=== PATIENT | male | born 1955 | race Caucasian/White ===

== ENCOUNTER 2016-12-03 21:20 | Inpatient (IN) | payer OTHER, MEDICAID ==
[~2016-12-03] VITALS: Ht 170.2 cm; Wt 68.1 kg
[~2016-12-03 21:20] MED LIST: LEVO500T16 PO; MULT1CAP33 PO
[2016-12-03 21:32] VITALS: BP 137/79; PULSE 95; RESP 16; O2SAT 94
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
[2016-12-03] MEDS ORDERED: Alum-Mag Hydrox-Simeth 30 mL Suspension PO PRN (23:25)
[2016-12-03] MEDS ORDERED: Polyethylene Glycol (PEG) 17 Gm Powder PO PRN (23:25)
[2016-12-03] MEDS ORDERED: LORazepam 2 mg Tablet PO ONE (23:35)
[2016-12-03 23:45] LABS: BASOPHILS % (AUTO) 0 % (0-3); EOSINOPHILS % (AUTO) 0.3 % (0-5); MONOCYTES % (AUTO) 13.6 % (4-12); Mean Corpuscular Hemoglobin 33.9 pg (27.0-35.0); Mean Corpuscular Volume 97.3 fL (81-100); NEUTROPHILS % (AUTO) 68.3 % (40-74); Platelet Count 56 bil/L (150-400)
[2016-12-04] VITALS (11 sets, daily range): BP systolic 112–138; BP diastolic 64–81; PULSE 78–117; RESP 18–22; O2SAT 91–98
[2016-12-04 00:01] LABS: INR 0.92 ratio
[2016-12-04] MEDS ORDERED: Ondansetron 8 mg ODT Tablet PO ONE (00:05)
[2016-12-04] MEDS ORDERED: Heparin 5,000 Unit/mL Inj SUBQ SCH (00:30)
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
[2016-12-04] MEDS: Ondansetron 2 mg/mL 2 mL Inj IVPUSH PRN ×2 (01:08→07:54)
--- NOTE | 2016-12-04 02:00 | NUR ---
admit note/med rec Pt is admitted to room 3029 from ER for L patella fracture around 00:30. Pt c/o severe left leg pain when standing and with short ambulation. Left knee is swollen and bruised. Left pedal pulse palpable. Pt tremulous and wanting to drink alcohol and smoke. CIWA score was 11 and dry heaving. 5mg Valium and Zofran given with good relief. CIWA is down to 4. Pt NPO pending Ortho consult. Pt is oriented to room and plan of care; he verbalized understanding. Unable to update pt's med rec because he couldn't remember his meds.
[2016-12-04] MEDS: 0.9% Sodium Chloride 1,000 ML IV SCH ×2 (03:37→14:06)
[2016-12-04 06:28] LABS: BASOPHILS % (AUTO) 0 % (0-3); EOSINOPHILS % (AUTO) 0.9 % (0-5); MONOCYTES % (AUTO) 12.5 % (4-12); Mean Corpuscular Hemoglobin 34.2 pg (27.0-35.0); Mean Corpuscular Volume 96.7 fL (81-100); NEUTROPHILS % (AUTO) 64.3 % (40-74); Platelet Count 46 bil/L (150-400)
[2016-12-04] MEDS ORDERED: IBUP200C PO (08:21)
[2016-12-04] MEDS ORDERED: CYAN1TAB19 PO (08:21)
[2016-12-04] MEDS ORDERED: CeFAZolin 2 Gm/50 mL D5W Duplex Bag IV SCH (08:30)
[2016-12-04] MEDS ORDERED: Famotidine Inj 20 MG in IV Premix 1 EACH IV SCH (08:30)
[2016-12-04] MEDS: Multivit-Miner-Folic Acid-Iron Tablet PO SCH (09:03)
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
--- NOTE | 2016-12-04 11:09 | PCM.PNORTH ---
Subjective Date of Service: Dec 04, 2016 Visit Information: Reason for Visit Fractured Pattelar Surgery/Surgery Date Post-Op Day # Date of Admission: Dec 03, 2016 at 23:49 Hospital Day # Subjective Patient states he is in pain but it is tolerable. He states he has not been given a brace yet but was told he should keep his leg straight and states he has been compliant with this. Postop General: No Shortness of Breath Objective Exam Objective Patient sitting up in bed. Patient is very shaky. There is not brace on his leg. There are no bandages on his knee. Area of erythema and swelling across the anterior aspect of his knee with several small non-draining lesions. Vital Signs and I/O Vital Sign - Last Date Time Temp Pulse Resp B/P Pulse Ox O2 Delivery O2 Flow Rate FiO2 12/04/16 10:20 117 12/04/16 08:53 36.7 18 135/81 91 Room Air Intake and Output 12/03/16 12/03/16 12/04/16 Cumulative From/Thru 15:00 23:00 07:00 12/03/16 21:32 - 12/04/16 06:21 Intake Total 271 ml 271 ml Output Total 1000 ml 1000 ml Balance -729 ml -729 ml Intake Oral 0 ml 0 ml IV Total 271 ml 271 ml Output Urine Total 1000 ml 1000 ml # Bowel Movements 0 0 Lab & Micro Results Laboratory Tests Test 12/03/16 23:33 12/03/16 23:34 12/03/16 23:42 12/04/16 05:45 White Blood Count 3.6th/mm3 (3.8-10.1) 2.2th/mm3 (3.8-10.1) Red Blood Count 3.01mil/mm3 (4.40-5.80) 2.75mil/mm3 (4.40-5.80) Hemoglobin 10.2g/dL (13.8-17.2) 9.4g/dL (13.8-17.2) Hematocrit 29.3% (41.0-50.0) 26.6% (41.0-50.0) Mean Corpuscular Volume 97.3fL (81-100) 96.7fL (81-100) Mean Corpuscular Hemoglobin 33.9pg (27.0-35.0) 34.2pg (27.0-35.0) Mean Corpuscular Hemoglobin Concent 34.8% (32.0-37.0) 35.3% (32.0-37.0) Red Cell Distribution Width 12.9% (12.3-15.4) 12.5% (12.3-15.4) Platelet Count 56bil/L (150-400) 46bil/L (150-400) Neutrophils (%) (Auto) 68.3% (40-74) 64.3% (40-74) Lymphocytes (%) (Auto) 17.8% (14-46) 22.3% (14-46) Monocytes (%) (Auto) 13.6% (4-12) 12.5% (4-12) Eosinophils (%) (Auto) 0.3% (0-5) 0.9% (0-5) Basophils (%) (Auto) 0% (0-3) 0% (0-3) Prothrombin Time 9.8sec (8.1-12.5) Prothromb Time International Ratio 0.92ratio Sodium Level 126mEq/L (134-144) 129mEq/L (134-144) Potassium Level 4.2mEq/L (3.5-5.2) 4.3mEq/L (3.5-5.2) Chloride Level 87mEq/L (97-108) 92mEq/L (97-108) Carbon Dioxide Level 18mmol/L (18-29) 21mmol/L (18-29) Blood Urea Nitrogen 8mg/dL (8-27) 6mg/dL (8-27) Creatinine 0.75mg/dL (0.76-1.27) 0.54mg/dL (0.76-1.27) Estimat Glomerular Filtration Rate 113mL/min (>59) 165mL/min (>59) Glucose Level 125mg/dL (60-99) 83mg/dL (60-99) Calcium Level 8.3mg/dL (8.5-10.1) 8.2mg/dL (8.5-10.1) Total Bilirubin 0.5mg/dL (0.0-1.2) 0.7mg/dL (0.0-1.2) Aspartate Amino Transf (AST/SGOT) 117U/L (0-50) 101U/L (0-50) Alanine Aminotransferase (ALT/SGPT) 53U/L (0-44) 45U/L (0-44) Alkaline Phosphatase 219U/L (25-160) 55U/L (25-160) Total Protein 6.7g/dL (6.4-8.4) 6.1g/dL (6.4-8.4) Albumin 4.0g/dL (3.4-5.0) 3.9g/dL (3.4-5.0) Hold Mcgarry Top Tube Received (Received) Alcohols 219mg/dL (0-10) Result Diagram: 12/04/1645 12/04/1645 Extremities: Distal Pulses Palpable, No Compartment Syndrom Noted Postop Sensory Motor: Distal Motor Intact, Movement in Toes, Distal Sensation Intact, NVI Distally Assessment & Plan Impression Left patella fracture Knee leg cellulitis surrounding left knee Problems: Plan Per Dr. Garcia - patient does not need to be NPO as the patella fracture will be treated nonoperatively with bracing. Patient should be placed into a straight leg knee immobilizer at all times. Patient should not flex his knee. Dr. Garcia would also like a non-contrast MRI of the left knee which she has written orders for in the chart. Encourage oral pain medications. Patient has a history of alcoholism and may elicits symptoms of DTs. If that is the case, he may need some sedation to hold still through the MRI. VTE Prophylaxis: SCDs Resuscitation Status: CPR: Attempt Resuscitation India Nickerson PA-C Dec 04, 2016 11:09
[2016-12-04] MEDS: CeFAZolin 2 Gm/50 mL D5W IV Premix IV SCH ×2 (11:17→17:21)
[2016-12-04] MEDS ORDERED: Albuterol 2.5 mg/3 mL Inhalation Solution NEB PRN (12:20)
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
--- NOTE | 2016-12-04 17:32 | NUR ---
Pain/L Knee Immobilizer Roxycodone 5mg q4h ineffective, pre-medicated patient before shower (surgeon order to shower before surgery), patient tolerated process very poorly d/t pain, Md made aware, order increased to 10mg, new dose admin post shower, currently comfortable stated, 2 tabs worked very well. [place] @ [facility] fit patient with left knee immobilizer, patient could only tolerate setting at 30 degrees, cornerstone to make adjustments. Call [phone] w/ questions.
[2016-12-04 19:35] LABS: D-Dimer 2.87 mg/L FEU (<0.50)
--- NOTE | 2016-12-04 19:41 | NUR ---
Off Floor for MRI: transferred via bed, pt SL, stable condition
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
--- NOTE | 2016-12-04 20:26 | NUR ---
Back to room: Tele placed back on. pt encouraged to start drinking contrast for CT.
[2016-12-05] VITALS (8 sets, daily range): BP systolic 109–122; BP diastolic 67–79; PULSE 68–118; RESP 18–20; O2SAT 93–96
[2016-12-05] MEDS: CeFAZolin 2 Gm/50 mL D5W IV Premix IV SCH ×3 (02:01→16:56)
--- NOTE | 2016-12-05 03:00 | NUR ---
Transfer of Care: This RN transferred care around 0215 to Sly Ahmadi RN. During NOC shift pt was taken to MRI and CT x2. Pt resting comfortably in bed. Passed in report that pt was noted not to be moving much in bed and should be a Q2 turn; pt turned at time of change of care.
[2016-12-05] MEDS: 0.9% Sodium Chloride 1,000 ML IV SCH ×2 (05:56→09:26)
--- NOTE | 2016-12-05 06:16 | NUR ---
NOC/Activity Assume of care 0215 from previous RN. pt denies chest pain, sob, n/v or abd discomfort. Pleasant and cooperative with care. CIWA of 2 upon assessment. Pt complain of knee pain, 12/06. Roxidone administered PRN. Pt states relief of pain. telemetry monitoring noted Sinus Rhythm to Sinus Tachycardia 110 and asymtomatic.
[2016-12-05 06:48] LABS: Mean Corpuscular Hemoglobin 34.1 pg (27.0-35.0); Mean Corpuscular Volume 98.9 fL (81-100)
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
[2016-12-05] MEDS: Multivit-Miner-Folic Acid-Iron Tablet PO SCH (09:25)
--- NOTE | 2016-12-05 11:37 | PCM.PNORTH ---
Subjective Date of Service: Dec 05, 2016 Visit Information: Reason for Visit Fractured Pattelar Surgery/Surgery Date Post-Op Day # Date of Admission: Dec 03, 2016 at 23:49 Hospital Day # Subjective The patient reports he cannot extend the knee or lift the leg. Postop General: No Shortness of Breath Pain Management: PO Objective Exam Objective Patient is seen laying bed. Vital Signs and I/O Vital Sign - Last Date Time Temp Pulse Resp B/P Pulse Ox O2 Delivery O2 Flow Rate FiO2 12/05/16 10:33 105 12/05/16 10:18 20 93 Room Air 12/05/16 09:05 36.7 109/67 Intake and Output 12/04/16 12/04/16 12/05/16 Cumulative From/Thru 15:00 23:00 07:00 12/03/16 21:32 - 12/05/16 06:52 Intake Total 1487 ml 1430 ml 3188 ml Output Total 850 ml 2000 ml 3850 ml Balance 637 ml -570 ml -662 ml Intake Oral 520 ml 800 ml 1320 ml IV Total 967 ml 630 ml 1868 ml Output Urine Total 850 ml 2000 ml 3850 ml # Bowel Movements 0 Lab & Micro Results Laboratory Tests Test 12/04/16 13:32 12/04/16 19:10 12/05/16 06:20 Urine Opiates Screen Negative Urine Methadone Screen Negative Urine Barbiturates Screen Negative Urine Amphetamines Screen Negative Urine Benzodiazepines Screen Negative Urine Cocaine Metabolite Screen Negative Urine Cannabinoids Screen Negative Blood Smear Pathologist Review Hematology Comments Activated Partial Thromboplast Time 29.3sec (22.8-33.0) Fibrinogen 249mg/dL (157-380) D-Dimer 2.87mg/L FEU (<0.50) White Blood Count 2.9th/mm3 (3.8-10.1) Red Blood Count 2.64mil/mm3 (4.40-5.80) Hemoglobin 9.0g/dL (13.8-17.2) Hematocrit 26.1% (41.0-50.0) Mean Corpuscular Volume 98.9fL (81-100) Mean Corpuscular Hemoglobin 34.1pg (27.0-35.0) Mean Corpuscular Hemoglobin Concent 34.5% (32.0-37.0) Red Cell Distribution Width 12.5% (12.3-15.4) Platelet Count 49bil/L (150-400) Sodium Level 132mEq/L (134-144) Potassium Level 3.9mEq/L (3.5-5.2) Chloride Level 94mEq/L (97-108) Carbon Dioxide Level 23mmol/L (18-29) Blood Urea Nitrogen 7mg/dL (8-27) Creatinine 0.60mg/dL (0.76-1.27) Estimat Glomerular Filtration Rate 146mL/min (>59) Glucose Level 100mg/dL (60-99) Calcium Level 8.6mg/dL (8.5-10.1) Total Bilirubin 0.7mg/dL (0.0-1.2) Aspartate Amino Transf (AST/SGOT) 69U/L (0-50) Alanine Aminotransferase (ALT/SGPT) 34U/L (0-44) Alkaline Phosphatase 53U/L (25-160) Total Protein 5.9g/dL (6.4-8.4) Albumin 3.5g/dL (3.4-5.0) Result Diagram: 12/05/1661912/05/16619 General Appearance: Alert, Oriented X3, Cooperative, No Acute Distress Extremities: Distal Pulses Palpable, No Compartment Syndrom Noted Postop Sensory Motor: Distal Motor Intact, Distal Sensation Intact, NVI Distally SURGICAL WOUND : Wound Location/Description Left knee: moderate effusion, decreased erythema, abrasion is healing well. The knee brace is on upside down. It is removed, and reapplied. The straps are adjusted. Brace is set to 0 extension and 0 flexion. Brace is locked in extension (small orange padlocks on each side). Catheters: None Assessment & Plan Impression Left patella fracture, cellulitis, abrasion Problems: Plan Weight bearing as tolerated in brace with front wheeled walker Brace locked in extension at all times. Support the entire leg when elevating. Patient may be OOB to chair and BRP. Elevate and ice left knee On Ancef for cellulitis Plan: possible surgery in a week with Dr. Garcia if skin heals and cellulitis resolves, and other medical issues improve. Platelets will certainly need to be improved for surgery. Pain Management: Oxycodone VTE Prophylaxis: SCDs Resuscitation Status: CPR: Attempt Resuscitation ErskineDee Frazier PA-C Dec 05, 2016 11:37
--- NOTE | 2016-12-05 13:06 | NUR ---
Brace/Ortho Knee brace was set at 30 degrees at the start of shift. Kendra Curtis, Ortho PA, came to assess the patient and I talked with her about the knee brace and whether or not the patient is able to ambulate. Kendra adjusted the brace to be set at 0, per the surgeons note-the knee is to be kept in a straight brace to keep the pressure off of the knee and to keep the knee from pulling. After brace adjustment patient stated "that feels better already". Knee should be elevated with a pillow vertically placed under entire length of the brace to optimal support. After reading the PA's note, the patient is able to be WDAT with the brace and FWW and can sit in the chair. Talked with the patient and informed him about activity orders and to use the call light when he would like to be up out of bed. Continuing to do neuro checks on LLE, assessing brace placement, checking for patient comfort, and call light is within reach.
--- NOTE | 2016-12-05 13:36 | NUR ---
CIWA/Pain CIWA assessments completed every 4 hours and patient has scored a 4 and a 5 for me, this shift. This is due to patient having a moderate tremor and complaining of being occasionally sweaty. Patient has been calm, answers questions appropriately, and is easily arousable. Denies any tactile or visual disturbances. Patient continues to report pain at a 8-9/10 on the pain scale. Patient has been able to sleep on and off during this shift and reports feeling "nappy". Assisted with adjustment in bed to increase patient comfort. Calm and quiet environment, pain medication administered to decrease pain, pillows in place for comfort, knee brace in place, LLE elevated on pillow, and hourly rounding continues. Addendum: 12/05/16 at 1831 by RENA TRACY RN Patient has reported having no pain after brace adjustment and one dose of oxycodone at 1148.
--- NOTE | 2016-12-05 13:44 | DRSVH ---
PROCEDURE: CT CHEST, ABDOMEN AND PELVIS [facility] CONTRAST ([id number]) INDICATIONS: Followup pulmonary infiltrates, esophageal thickening and splenomegaly. TECHNIQUE: After the administration of oral and intravenous contrast, 5 mm thick sections acquired from the lung apices to the symphysis. 5 mm coronal and sagittal reformats were performed, with additional 7 mm c oronal MIP reformats through the lungs. For radiation dose reduction, the following was used: autom ated exposure control, adjustment of mA and/or kV according to patient size. COMPARISON: [facility], CT, CT CHEST WO CON, 03/05/2016, 9:15. FINDINGS: Image quality: Excellent. CHEST: Lungs and pleura: No acute airspace opacities. Bilateral alveolar opacities identified 03/05/16 have completely resolved. No pleural effusions or pneumothorax. Central and peripheral airways appear pa tent and normal in caliber. Mediastinum: Heart size is normal. Atherosclerotic calcifications noted in the coronary vasculature and the aorta. No pericardial effusion. No mediastinal or hilar adenopathy by size criteria. Thorac ic aorta and central pulmonary arteries are normal in size. Circumferential wall thickening involving the distal esophagus persists. Prominent lymph nodes noted adjacent to the gastroesophageal junction which is developed since the prior CT scan and measures 0.7 cm in short axis not meeting pathologic size criteria. Chest wall: No axillary or supraclavicular adenopathy by size criteria. Thyroid gland is within nor mal limits. ABDOMEN: Solid organs: Liver and spleen are normal in size and enhancement. Diffuse fatty infiltration of the liver noted. Gallbladder is within normal limits. Biliary system is non dilated. Pancreas enhance s normally. No adrenal nodules. Kidneys demonstrate normal size and enhancement, without hydronephr osis. Peritoneum and bowel: Scattered diverticuli noted in the colon appears circumferential wall thickenin g noted in the distal sigmoid colon which could represent inflammatory process related to diverticuli tis versus a malignancy. No free fluid or air. The appendix is normal. Nodes and vessels: No retroperitoneal or mesenteric adenopathy by size criteria. Multiple calcified lymph nodes in the upper abdomen are stable compared to prior examination. Aorta and inferior vena c brenna are normal in size. Scattered atherosclerotic calcifications involving the abdominal and pelvic v asculature. Miscellaneous: No ventral hernias. PELVIS: Genitourinary: Bladder wall thickness is normal. Prostate calcifications noted. Miscellaneous: No inguinal hernias or adenopathy. Inflammation noted in the anterolateral musculatur e in the lateral subcutaneous fat of the proximal left lower extremity. Bones: No suspicious bony lesions. No vertebral body compression fractures. Spine degenerative disc disease and facet arthropathy. IMPRESSION: 1. Bilateral lung alveolar opacities have resolved in the interval since prior examination obtained 1 05/05/15. No acute lung opacities identified in the current study. 2. Cerclage wall thickening involving the distal esophagus. Recommend either endoscopy or barium cont rast upper GI series for further evaluation. 3. circumferential wall thickening involving the distal sigmoid colon could be related to diverticula r inflammatory disease versus colon carcinoma. Recommend colonoscopy for further evaluation. 4. Hepatic steatosis. 5. Atherosclerosis including the coronary vasculature. 6. Nonspecific inflammation involving the musculature and the subcutaneous fat of the anterior and la teral, proximal left lower extremity. Infectious cellulitis cannot be excluded. Please correlate with clinical and laboratory data. Dictated by: Kasie Cai MD, PhD on 12/05/2016 at 13:26 Approved by: Kasie Cai MD, PhD on 12/05/2016 at 13:40
[2016-12-05 15:07] LABS: Free Lambda Lt Chains 23.8 mg/L (5.7-26.3)
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
[2016-12-06] VITALS (9 sets, daily range): BP systolic 111–139; BP diastolic 67–84; PULSE 79–112; RESP 18–20; O2SAT 92–96
[2016-12-06] MEDS: CeFAZolin 2 Gm/50 mL D5W IV Premix IV SCH ×3 (00:29→17:33)
[2016-12-06] MEDS: 0.9% Sodium Chloride 1,000 ML IV SCH (04:09)
--- NOTE | 2016-12-06 05:40 | NUR ---
NOC/Activity pt reports left knee pain, and back pain. Relieved by oxycodone. Denies chest pain, sob, n/v or abd discomfort. Episode of fever but has been relieved with tylenol. IVF running as ordered, ABx administered as scheduled. Hourly rounding done. Pt uses call light appropriately and is cooperative with care. Continuing to monitor.
[2016-12-06] MEDS: Multivit-Miner-Folic Acid-Iron Tablet PO SCH (08:04)
[2016-12-06] MEDS: Ondansetron 2 mg/mL 2 mL Inj IVPUSH PRN (12:18)
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
[2016-12-06 19:03] LABS: BASOPHILS % (AUTO) 0 % (0-3); EOSINOPHILS % (AUTO) 2.9 % (0-5)
[2016-12-06 19:07] LABS: MONOCYTES % (AUTO) 11.4 % (4-12); Mean Corpuscular Hemoglobin 33.9 pg (27.0-35.0); Mean Corpuscular Volume 101.3 fL (81-100); NEUTROPHILS % (AUTO) 64.9 % (40-74); Platelet Count 53 bil/L (150-400)
--- NOTE | 2016-12-06 20:15 | NUR ---
Transfer Patient arrived to floor from [facility] at 2002. Patient A&OX3. Report given by Leroy PRAKASH. Vitals stable. Patient saline locked. Patient states pain is 6/10.
--- NOTE | 2016-12-06 20:18 | NUR ---
transfer: pt transferred to [facility] room 3012, report given to Pavan PRAKASH.
[2016-12-07] MEDS ORDERED: 0.9% Sodium Chloride 250 ML ONE (00:11)
[2016-12-07] MEDS: CeFAZolin 2 Gm/50 mL D5W IV Premix IV SCH ×3 (00:17→17:12)
[2016-12-07 04:46] VITALS: BP 123/78; PULSE 97; RESP 16; O2SAT 95
[2016-12-07 05:21] LABS: BASOPHILS % (AUTO) 0 % (0-3); EOSINOPHILS % (AUTO) 3.7 % (0-5); MONOCYTES % (AUTO) 11.2 % (4-12); Mean Corpuscular Hemoglobin 34.2 pg (27.0-35.0); Mean Corpuscular Volume 100.9 fL (81-100); NEUTROPHILS % (AUTO) 61.8 % (40-74); Platelet Count 66 bil/L (150-400)
--- NOTE | 2016-12-07 07:56 | PCM.PNORTH ---
Subjective Date of Service: Dec 07, 2016 Visit Information: Reason for Visit Fractured Pattelar Surgery/Surgery Date Post-Op Day # Date of Admission: Dec 03, 2016 at 23:49 Hospital Day # Subjective Patient is day #4 from admission for sustained left patella fracture. Patient states his pain is controlled but not comfortable. He would like his brace adjusted a little bit. Wondering when he can have the surgery or how long he has to stay here. Postop General: No Shortness of Breath Pain Management: PO Objective Exam Objective Patient is alert and oriented 3. Answering questions appropriately. Patient is sitting up in the bed and not in acute distress today. Brace is in good position over the left leg. Patient does have some abrasions but no erythema seen today.. Calf is soft and nontender. Sensation and pulses intact, patient able to wiggle toes. Platelet count still low. Patient continuing IV antibiotics. Vital Signs and I/O Vital Sign - Last Date Time Temp Pulse Resp B/P Pulse Ox O2 Delivery O2 Flow Rate FiO2 12/07/16 04:46 36.8 97 16 123/78 95 Room Air Intake and Output 12/06/16 12/06/16 12/07/16 Cumulative From/Thru 15:00 23:00 07:00 12/03/16 21:32 - 12/07/16 06:35 Intake Total 1626 ml 663 ml 8939 ml Output Total 600 ml 1050 ml 6900 ml Balance 1026 ml -387 ml 2039 ml Intake Oral 836 ml 600 ml 3856 ml IV Total 790 ml 63 ml 5083 ml Output Urine Total 600 ml 1050 ml 6900 ml # Bowel Movements 0 0 0 Lab & Micro Results Laboratory Tests Test 12/06/16 18:50 12/07/16 05:06 White Blood Count 3.4th/mm3 (3.8-10.1) 3.5th/mm3 (3.8-10.1) Red Blood Count 2.24mil/mm3 (4.40-5.80) 2.22mil/mm3 (4.40-5.80) Hemoglobin 7.6g/dL (13.8-17.2) 7.6g/dL (13.8-17.2) Hematocrit 22.7% (41.0-50.0) 22.4% (41.0-50.0) Mean Corpuscular Volume 101.3fL (81-100) 100.9fL (81-100) Mean Corpuscular Hemoglobin 33.9pg (27.0-35.0) 34.2pg (27.0-35.0) Mean Corpuscular Hemoglobin Concent 33.5% (32.0-37.0) 33.9% (32.0-37.0) Red Cell Distribution Width 12.0% (12.3-15.4) 12.0% (12.3-15.4) Platelet Count 53bil/L (150-400) 66bil/L (150-400) Neutrophils (%) (Auto) 64.9% (40-74) 61.8% (40-74) Lymphocytes (%) (Auto) 20.2% (14-46) 23.0% (14-46) Monocytes (%) (Auto) 11.4% (4-12) 11.2% (4-12) Eosinophils (%) (Auto) 2.9% (0-5) 3.7% (0-5) Basophils (%) (Auto) 0% (0-3) 0% (0-3) Sodium Level 132mEq/L (134-144) 133mEq/L (134-144) Potassium Level 4.0mEq/L (3.5-5.2) 4.1mEq/L (3.5-5.2) Chloride Level 95mEq/L (97-108) 96mEq/L (97-108) Carbon Dioxide Level 25mmol/L (18-29) 27mmol/L (18-29) Blood Urea Nitrogen 7mg/dL (8-27) 7mg/dL (8-27) Creatinine 0.61mg/dL (0.76-1.27) 0.54mg/dL (0.76-1.27) Estimat Glomerular Filtration Rate 143mL/min (>59) 165mL/min (>59) Glucose Level 111mg/dL (60-99) 101mg/dL (60-99) Calcium Level 8.7mg/dL (8.5-10.1) 8.5mg/dL (8.5-10.1) Total Bilirubin 0.4mg/dL (0.0-1.2) Aspartate Amino Transf (AST/SGOT) 46U/L (0-50) Alanine Aminotransferase (ALT/SGPT) 19U/L (0-44) Alkaline Phosphatase 49U/L (25-160) Total Protein 5.6g/dL (6.4-8.4) Albumin 3.4g/dL (3.4-5.0) Result Diagram: 12/07/16 0506 12/07/16 0506 Catheters: None Assessment & Plan Impression Patient is day #4 from sustaining a left patellar fracture. Pain is well controlled. Problems: Plan Weight bearing as tolerated in brace with front wheeled walker Brace locked in extension at all times. Support the entire leg when elevating. Patient may be OOB to chair and BRP. Elevate and ice left knee On Ancef for cellulitis Conveyed status to Dr. Luisito Garcia, patient will need to be medically stable before surgery as far as platelets, risk for cellulitis especially with hardware implantation for patellar repair. Plan: possible surgery in a week with Dr. Garcia if skin heals and cellulitis resolves, and other medical issues improve. Platelets will certainly need to be improved for surgery. VTE Prophylaxis: SCDs Resuscitation Status: CPR: Attempt Resuscitation Pavan Heard PA-C Dec 07, 2016 07:56
[2016-12-07] MEDS: Multivit-Miner-Folic Acid-Iron Tablet PO SCH (09:04)
[2016-12-07 11:47] VITALS: BP 115/69; PULSE 88; RESP 16; O2SAT 97
--- NOTE | 2016-12-07 14:14 | NUR ---
Social Work: Continued Discharge Planning/Multidisciplinary Rounds D: EMR reviewed. Pt is on day 4 of hospitalization. Pt discussed in multidisciplinary rounds - pt not likely to discharge until Saturday. SW received T/C and voicemail from Anushka at [facility]. Returned T/C to Elizabeth Cordova ([employer]) at [phone] [facility]. Elizabeth stated that pt has been approved for [employer] housing (ground floor - no steps or thresholds) and needs lease ppw signed by pt so he can have housing when he returns. Elizabeth stated that pt could have housing as soon as pt is ready for discharge. Elizabeth requested that SW deliver ppw to pt for his signature but don't date - date of lease will depend on discharge. SW will provide ppw to pt, assist pt with ppw if needed, and fax completed lease back to [phone] [place] [address]. SW will continue follow and update Elizabeth Cordova ([employer]) at [phone] and Katy Brown (Family Support Advocate) work [phone] and will be corresponding regarding pt's housing. A: Pt who is independent at baseline. Pt who has been homeless but will have housing at time of discharge, pending lease is completed at hospital and faxed back to [phone] [place] [address]. P: SW to provide pt with lease ppw and instructions. SW to fax lease ppw back to [phone] [place] [address]. SW will continue to follow. JENNIFER Hernandez
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
--- NOTE | 2016-12-07 17:48 | CONS ---
[address] [address] CONSULTATION REPORT PATIENT: MARY SAEED : 1955 MR#: [id number] ADMIT: 12/03/2016 JOB ID: [id number] DATE OF SERVICE: IN HOUSE CONSULTATION FOLLOW-UP CPT CODE 37464 12/07/2016 HISTORY OF PRESENT ILLNESS: The patient has a very comminuted left patellar fracture. His cellulitis is slowly improving. He still has two abrasions over the anterior portion of the knee and those are also improving. His platelet count, however, is still very low at 67,000 and his hematocrit is down to 22, and hemoglobin of 7.6. IMPRESSION AND PLAN: Will need to discuss this with Hematology. The patient needs to have an adequate hemoglobin and hematocrit, as well as platelet count, before contemplating surgery. I would anticipate we should be able to proceed with surgery sometime next week once the abrasions have healed. In the interim he should remain on his knee immobilizer and follow up with Hematology as well for recommendations so that we will know how much blood he will need to be transfused as well as platelets. CC: KARINA-Orthopedics CC: Lucia Adames
--- NOTE | 2016-12-07 18:55 | CCS NOTE ---
[facility] [address] [place] [address], [address] [address] MEDICAL ONCOLOGY OFFICE NOTE PATIENT: MARY SAEED : 1955 MR#: [id number] DATE: 12/03/2016 JOB ID: [id number] DATE: 12/07/2016 SUBJECTIVE: The patient was seen after transfer to the first floor today. I also spoke with Dr. Blanton yesterday over the phone. There has been no new clinical development in terms of infections or complications. He remains afebrile. He has not noticed any signs of black stools or bleeding, but his hemoglobin has dropped from December 05 to December 06 by 1.5 g from 9.0 to 7.6. His white count has been gradually improving; now is 3.5 with an absolute neutrophil count of 2100. Hemoglobin of today 7.6. Platelets spontaneously improving to 66. He has no coagulopathy based on lab studies. Chemistry shows normal electrolytes, except for sodium of 133, creatinine and LFTs normal. Albumin normal. His transaminitis has completely resolved. OBJECTIVE: On exam, he has no rash. His brace has been now fixed in full extension. He has not been able to do any meaningful ambulation. ASSESSMENT AND PLAN: A 61-year-old gentleman admitted with a left patellar fracture and background information of alcoholism with no evidence of chronic viral hepatitis. He was found to be pancytopenic on admission with platelets in the 40s, white count around 2, and a hemoglobin of 9.5. Workup has been negative for any specific deficiency and no evidence of hemolysis. No significant abnormalities on his smear and no coagulopathy. He had a concomitant possible cellulitis over the tissue of the fracture that is being treated. We are seeing a gradual spontaneous improvement of his white count and platelets. His platelets are now 66 without transfusion and his white count is essentially normalized with absolute neutrophil count of 2100. His hemoglobin however has dropped from 9.4 to 7.6 over a 48 hour period without having any clinical evidence of bleeding. His CAT scan had shown thickening of the wall of the distal esophagus and sigmoid colon. As discussed with Dr. Blanton yesterday, the patient is pending surgery. My recommendations for transfusion support are as follows: 1. Transfuse 2 units of packed red cells currently to adequately improve his hemoglobin with standard blood products. 2. If a surgery date is anticipated next week then the patient should receive 1 unit of single donor platelets two days before the planned surgery with repeat labs the next morning and if needed receive a 2nd unit to get the platelet count above 75 and if desired up to 100 per surgeon's discretion. 3. Consider GI consult for planning of an EGD and colonoscopy to rule out any source of pathology that could cause blood loss in the distal esophagus and the sigmoid colon as seen in the CT scan. The patient does not appear to be at any excessive risk of bleeding given the normal INR and PTT and fibrinogen and normal albumin in regard to the synthetic function of the liver and with correction of his thrombocytopenia preop with transfusion, from our point of view, he is then okay to proceed with surgery. His white count certainly is adequate.
[2016-12-07 20:29] VITALS: BP 92/57; PULSE 102; RESP 16; O2SAT 95
[2016-12-08] MEDS: CeFAZolin 2 Gm/50 mL D5W IV Premix IV SCH ×3 (00:19→16:22)
--- NOTE | 2016-12-08 02:27 | NUR ---
PAIN; no request for pain rx. Brace on. Forgetful at times. Thought it was noon instead of midnight. Cooperative. Sits on side of bed and uses urinal.
[2016-12-08 04:42] VITALS: BP 147/83; PULSE 89; RESP 18; O2SAT 99
[2016-12-08 06:21] LABS: BASOPHILS % (AUTO) 0 % (0-3); EOSINOPHILS % (AUTO) 2.5 % (0-5); MONOCYTES % (AUTO) 14.7 % (4-12); Mean Corpuscular Hemoglobin 34.8 pg (27.0-35.0); NEUTROPHILS % (AUTO) 66.1 % (40-74); Platelet Count 90 bil/L (150-400)
[2016-12-08 06:31] LABS: Magnesium 1.8 mg/dL (1.6-2.6)
[2016-12-08] MEDS: Multivit-Miner-Folic Acid-Iron Tablet PO SCH (09:53)
--- NOTE | 2016-12-08 10:54 | PCM.PNORTH ---
Subjective Date of Service: Dec 08, 2016 Visit Information: Reason for Visit Fractured Pattelar Surgery/Surgery Date Post-Op Day # Date of Admission: Dec 03, 2016 at 23:49 Hospital Day # 5 Subjective Patient states he has been compliant with wearing his brace at all times. He states he has been unable to get up and move around because of the brace and his pain level. Postop General: No Shortness of Breath Pain Management: PO Objective Exam Objective Patient sitting in bed. Knee brace is on and locked in extension Vital Signs and I/O Vital Sign - Last Date Time Temp Pulse Resp B/P Pulse Ox O2 Delivery O2 Flow Rate FiO2 12/08/16 04:42 36.8 89 18 147/83 99 Room Air Intake and Output 12/07/16 12/07/16 12/08/16 Cumulative From/Thru 15:00 23:00 07:00 12/03/16 21:32 - 12/08/16 06:14 Intake Total 895 ml 980 ml 60601 ml Output Total 1425 ml 1440 ml 9765 ml Balance -530 ml -460 ml 1049 ml Intake Oral 895 ml 800 ml 5551 ml IV Total 180 ml 5263 ml Output Urine Total 1425 ml 1440 ml 9765 ml # Bowel Movements 0 1 1 Lab & Micro Results Laboratory Tests Test 12/08/16 05:52 White Blood Count 3.6th/mm3 (3.8-10.1) Red Blood Count 2.33mil/mm3 (4.40-5.80) Hemoglobin 8.1g/dL (13.8-17.2) Hematocrit 23.3% (41.0-50.0) Mean Corpuscular Volume 100.0fL (81-100) Mean Corpuscular Hemoglobin 34.8pg (27.0-35.0) Mean Corpuscular Hemoglobin Concent 34.8% (32.0-37.0) Red Cell Distribution Width 12.0% (12.3-15.4) Platelet Count 90bil/L (150-400) Neutrophils (%) (Auto) 66.1% (40-74) Lymphocytes (%) (Auto) 16.7% (14-46) Monocytes (%) (Auto) 14.7% (4-12) Eosinophils (%) (Auto) 2.5% (0-5) Basophils (%) (Auto) 0% (0-3) Sodium Level 132mEq/L (134-144) Potassium Level 4.3mEq/L (3.5-5.2) Chloride Level 96mEq/L (97-108) Carbon Dioxide Level 24mmol/L (18-29) Blood Urea Nitrogen 8mg/dL (8-27) Creatinine 0.53mg/dL (0.76-1.27) Estimat Glomerular Filtration Rate 169mL/min (>59) Glucose Level 107mg/dL (60-99) Calcium Level 9.0mg/dL (8.5-10.1) Magnesium Level 1.8mg/dL (1.6-2.6) Result Diagram: 12/08/16 0552 12/08/16 0552 General Appearance: Alert, Oriented X3, Cooperative, No Acute Distress Extremities: Distal Pulses Palpable, No Compartment Syndrom Noted, Tenderness/ Swelling Noted (Moderately swollen around anterio rof knee, palpable defect on patella ) Postop Sensory Motor: Distal Motor Intact, Movement in Toes, Distal Sensation Intact, NVI Distally Catheters: None Assessment & Plan Impression Patient is day #5 from sustaining a left patellar fracture. Problems: Plan Weight bearing as tolerated in brace with front wheeled walker Brace locked in extension at all times. Support the entire leg when elevating. Patient may be OOB to chair and BRP. Elevate and ice left knee. Patient has swelling around his knee and would benefit from ice if he can tolerate it. On Ancef for cellulitis. His erythema has greatly diminished since I saw him earlier this week. Apart from a few abrasion, he seems to have healed relatively quickly and will likely be ready for surgery early this week. Plan: possible surgery in a week with Dr. Garcia if skin heals and cellulitis resolves, and other medical issues improve. Platelets will certainly need to be improved for surgery. Hematological recommendations: 1. Transfuse 2 units of packed red cells currently to adequately improve his hemoglobin with standard blood products. 2. If a surgery date is anticipated next week then the patient should receive 1 unit of single donor platelets two days before the planned surgery with repeat labs the next morning and if needed receive a 2nd unit to get the platelet count above 75 and if desired up to 100 per surgeon's discretion. 3. Consider GI consult for planning of an EGD and colonoscopy to rule out any source of pathology that could cause blood loss in the distal esophagus and the sigmoid colon as seen in the CT scan. The patient does not appear to be at any excessive risk of bleeding given the normal INR and PTT and fibrinogen and normal albumin in regard to the synthetic function of the liver and with correction of his thrombocytopenia preop with transfusion, from our point of view, he is then okay to proceed with surgery. His white count certainly is adequate. VTE Prophylaxis: SCDs Resuscitation Status: CPR: Attempt Resuscitation India Nickerson PA-C Dec 08, 2016 10:54
[2016-12-08 15:00] VITALS: BP 111/72; PULSE 87; RESP 18; O2SAT 98
--- NOTE | 2016-12-08 15:19 | NUR ---
Social Work: Continued Discharge Planning/Multidisciplinary Rounds D: EMR reviewed. Pt is on day 6 of hospitalization. Pt discussed with ortho and in multidisciplinary rounds. Per ortho, pt to remain hospitalized through 12/14 for scheduled surgery. Pt not medically stable for discharge prior to surgery. SW met with pt and pt signed lease documents to secure housing at time of discharge. NINA faxed to Elizabeth Cordova at [facility]. Elizabeth will follow-up with NINA once she arrives back to work 12/10. SW will continue to follow. Pt arrived via EMS and is eligible for [facility] transport to [facility]. [employer] will pay for [employer] and be reimbursed by [facility] - [employer] to coordinate at time of discharge. NINA confirmed that Elizabeth Cordova will pick pt up from [employer] [facility] with keys to pt's new apartment. Pt updated and agreeable. SW will continue to follow. A: Pt who is independent at baseline - pt homeless but will have housing secured by time of discharge through [facility] isael facilitated by Elizabeth Cordova at [facility]. P: Pt to remain hospitalized through 12/14 for surgery. Pt not medically stable for discharge. SW to follow-up with Elizabeth Cordova [phone] on 12/10 to confirm receipt of lease ppw. SW to follow-up with Colby MCKEON) [phone] with update on pt's anticipated discharge and discharge plan. Pt arrived via EMS and is eligible for [facility] transport to [facility]. [employer] will pay for [employer] and be reimbursed by [facility] - [employer] to coordinate at time of discharge. NINA confirmed that Elizabeth Cordova will pick pt up from [employer] [facility] with keys to pt's new apartment. Pt updated and agreeable. SW will continue to follow. JENNIFER Hernandez
--- NOTE | 2016-12-08 16:06 | NUR ---
Pain Pain controlled as needed with Roxycodone and APAP. Stands at side of bed to use urinal with steady gait. Care continues
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
[2016-12-08 19:25] VITALS: BP 107/77; PULSE 87; RESP 16; O2SAT 97
[2016-12-09] MEDS: CeFAZolin 2 Gm/50 mL D5W IV Premix IV SCH ×3 (00:47→17:00)
--- NOTE | 2016-12-09 00:57 | NUR ---
PAIN; pain controlled with oxycondone. Pt sleeping and watching tv off and on tonight. Addendum: 12/09/16 at 0058 by KINJAL DEVLIN RN CORRECTION OF ABOVE; oxycodone.
[2016-12-09 04:20] VITALS: BP 142/91; PULSE 81; RESP 18; O2SAT 99
[2016-12-09] MEDS: Multivit-Miner-Folic Acid-Iron Tablet PO SCH (08:54)
[2016-12-09 08:58] VITALS: BP 125/84; PULSE 98; RESP 16; O2SAT 97
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
--- NOTE | 2016-12-09 15:49 | NUR ---
Evaluation completed. Please go to "Notes" then click on "Assessments and Notes" (bottom left corner of screen). Then select appropriate discipline tab on top of screen.
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
--- NOTE | 2016-12-09 17:57 | NUR ---
ACTIVITY Oxicodone 10 mg PO has been helpful for pain control. Tolerating liquids PO and his diet well. Denies nausea. No emesis noted. Denies SOB. Patient was able to get OOB and ambulate in the room with the FWW. Brace is on at all times. Tolerated activity well. Voiding without any problems. Using his call light appropriately. Sukumar alarm is on.
[2016-12-09 20:31] VITALS: BP 99/64; PULSE 77; RESP 18; O2SAT 97
[2016-12-10] VITALS (8 sets, daily range): BP systolic 55–130; BP diastolic 35–84; PULSE 66–116; RESP 16–20; O2SAT 95–100
[2016-12-10] MEDS: CeFAZolin 2 Gm/50 mL D5W IV Premix IV SCH ×4 (00:32→18:08)
[2016-12-10 05:38] LABS: BASOPHILS % (AUTO) 0.5 % (0-3); EOSINOPHILS % (AUTO) 3.6 % (0-5); MONOCYTES % (AUTO) 24.9 % (4-12); Mean Corpuscular Hemoglobin 33.3 pg (27.0-35.0); Mean Corpuscular Volume 100.4 fL (81-100); NEUTROPHILS % (AUTO) 49.1 % (40-74); Platelet Count 146 bil/L (150-400)
--- NOTE | 2016-12-10 05:54 | NUR ---
activity pt has been up out of bed frequently this shift. fernando alarm is on and pt needs frequent reminders to wait for staff to assist him. still he has been found multiple times out of bed attempting to ambulate in room without assistance or FWW. teaching on fall risk and the potential for injury has been done, reinforcement needed. pain controlled has been adequately managed with oxycodone. care continues.
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
[2016-12-10] MEDS: Multivit-Miner-Folic Acid-Iron Tablet PO SCH (10:00)
--- NOTE | 2016-12-10 14:42 | NUR ---
Hypotension Pt. had just sat down in his chair after PT when he complained of dizziness. Pt. was diaphoretic and stated he was seeing black spots. Vitals showed significant hypotension of 55/35 with 116 HR. Charge nurse was called and a verbal order for 500 cc NS bolus received and administered. Several nurses came to assist pt. to the bed in trendelenberg position. Once pt. was lying down with bolus running, vitals soon returned to 117/77 with HR of 66. Symptoms resolved. BP once bolus was complete was in the 120s/60s. HR in the 70s. Parker bed alarm on, and pt. educated on the importance of calling before getting up, especially after this hypotensive episode.
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
[2016-12-10] MEDS ORDERED: Furosemide 10 mg/mL 2 mL Inj IV ONE (15:40)
[2016-12-11] VITALS (7 sets, daily range): BP systolic 103–144; BP diastolic 66–90; PULSE 78–95; RESP 15–17; O2SAT 96–98
[2016-12-11] MEDS ORDERED: 0.9% Sodium Chloride 250 ML ONE (00:13)
[2016-12-11] MEDS ORDERED: Furosemide 10 mg/mL 2 mL Inj IV ONE (04:00)
--- NOTE | 2016-12-11 05:20 | NUR ---
NURSE NOTE NOC SHIFT Pt is alert and oriented x4, denies dizziness, N/V. He c/o left knee pain which is well managed with Oxycodone. He remains afebrile, received 1 unit of blood and tolerated well. All vital signs remained stable, no respiratory changes post transfusion. Pt also received furosemide post transfusion. He calls appropriately and is able to communicate needs. Pt uses urinal and ambulated to the BR with SBA.
[2016-12-11 05:31] LABS: Mean Corpuscular Hemoglobin 32.5 pg (27.0-35.0); Mean Corpuscular Volume 96.8 fL (81-100)
[2016-12-11] MEDS: CeFAZolin 2 Gm/50 mL D5W IV Premix IV SCH ×3 (05:33→21:22)
[2016-12-11] MEDS: Multivit-Miner-Folic Acid-Iron Tablet PO SCH (09:00)
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
--- NOTE | 2016-12-11 16:21 | NUR ---
Social Work: Continued Discharge Planning/Multidisciplinary Rounds D: EMR reviewed. Pt is on day 8 of hospitalization. Pt discussed in multidisciplinary rounds. Pt's surgery may be moved up. is aware of pt's DME needs and will continue to work with DESULPHURIZER OPERATOR regarding DME, SNF, HH needs at d/c. notified that [facility] is the only HH company that services [facility]. MD requests coordination after surgery, no orders received at this time. PT will follow up with pt post surgery. SW continues to follow. SW met with pt at bedside regarding completion of housing paperwork. Pt completed this and DESULPHURIZER OPERATOR faxed to Elizabeth Cord[facility]. Elizabeth confirmed receipt of fax. Elizabeth will black pickler pt at the [facility] when able to return to [facility]. Elizabeth also states that there is a DME loaner department at the [facility] and if DME is needed at d/c Elizabeth will be able to obtain loaner DME. Update provided to Colby La as well. All updated and agreeable to plan. SW continues to follow. A: Pt who is independent at baseline - pt homeless but will have housing secured by time of discharge through [facility] isael facilitated by Elizabeth Cordova at [facility]. P: Pt to remain hospitalized until surgery is complete. Pt not medically stable for discharge. Housing paperwork is complete. Receipt confirmed. All updated and agreeable. SW will continue to follow for DME and SNF/HH needs at discharge. Arminda Resendiz, DESULPHURIZER OPERATOR
--- NOTE | 2016-12-11 18:32 | NUR ---
Activity Pt calm and pleasant this shift, fairly quiet in room. A&Ox3, CISSE - limited to LLE d/t immobilizer, States pain but does not always call for pain medication - appears to tolerate pain well via FELDT. No issues/concerns this shift. Continue abx and monitor LLE swelling/cellulitis sx in anticipation for OR on Saturday - care continues.
--- NOTE | 2016-12-11 22:18 | NUR ---
PAIN: Pt. resting in bed asleep, woke up for assessment. Stated he wants to sleep, last night he was awaken several times by nurses and staff. Given HS meds. Rated his pain at 8/10 2 hrs after pain meds given, then changed his mind and rated his pain at 6/10. Wants to be awaken for the next pain meds. Pt. was pleasant and cooperative with care.
[2016-12-12 05:15] VITALS: BP 131/61; PULSE 79; RESP 17; O2SAT 98
[2016-12-12] MEDS: CeFAZolin 2 Gm/50 mL D5W IV Premix IV SCH (05:16)
[2016-12-12] MEDS: Multivit-Miner-Folic Acid-Iron Tablet PO SCH (09:20)
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
[2016-12-12 14:16] VITALS: BP 136/83; PULSE 89; RESP 17; O2SAT 100
--- NOTE | 2016-12-12 19:37 | NUR ---
Activity Pt sleeping majority of shift, states pain but typically states it as tolerable. 10mg PO Roxycodone given just prior to change of shift. Eff. Pt aware of plan for OR tomorrow and NPO at midnight. LLE elevated on pillow and ice to knee. Pt did state feeling anxious and "scared" re: procedure tomorrow. Spoke with pt and attempted to ease his anxiety re: this. NOC RN aware. Care continues.
[2016-12-12 20:05] VITALS: BP 114/74; PULSE 76; RESP 16; O2SAT 97
[2016-12-13] VITALS (10 sets, daily range): BP systolic 106–170; BP diastolic 54–93; PULSE 70–107; RESP 14–22; O2SAT 92–100
--- NOTE | 2016-12-13 03:27 | NUR ---
PAIN/NPO: Pt's pain is well controlled with 10 mg of Roxicodone Q4hr prn. Pt. keeping leg elevated on pillows and iced as per MD orders, swelling and bruising of left leg is improved. Pt. has been NPO since midnight for possible OR today. Resting in bed through the night.
[2016-12-13 05:38] LABS: Mean Corpuscular Hemoglobin 33.3 pg (27.0-35.0); Mean Corpuscular Volume 97.6 fL (81-100)
[2016-12-13] MEDS: Multivit-Miner-Folic Acid-Iron Tablet PO SCH (08:30)
[2016-12-13] MEDS: Dextrose 5% 0.9% NaCl 1,000 ML IV SCH (10:40)
[2016-12-13] MEDS ORDERED: Ondansetron 2 mg/mL 2 mL Inj ONE (12:11)
[2016-12-13] MEDS ORDERED: fentaNYL-PF 50 mCg/mL 2 mL Inj ONE ×2 (12:11→18:08)
[2016-12-13] MEDS ORDERED: Propofol 10,000 mCg/mL 20 mL Inj ONE (12:11)
[2016-12-13] MEDS ORDERED: Dexamethasone 4 mg/mL Inj ONE (12:11)
[2016-12-13] MEDS ORDERED: Lactated Ringer's 500 ML IV PRN (12:42)
[2016-12-13] MEDS ORDERED: Lactated Ringer's 1,000 ML IV ONE ×2 (12:42→16:30)
[2016-12-13] MEDS ORDERED: Lactated Ringer's 1,000 ML IV SCH (12:42)
[2016-12-13] MEDS ORDERED: Dexamethasone 4 mg/mL Inj IVPUSH PRN (12:45)
[2016-12-13] MEDS ORDERED: fentaNYL-PF 50 mCg/mL 2 mL Inj IVPUSH PRN (12:45)
[2016-12-13] MEDS ORDERED: Phenylephrine 10,000 mCg/mL Inj IVPUSH PRN (12:45)
[2016-12-13] MEDS ORDERED: EPHEDrine Sulfate 50 mg/mL Inj IVPUSH PRN (12:45)
[2016-12-13] MEDS ORDERED: Ondansetron 2 mg/mL 2 mL Inj IVPUSH PRN ×2 (12:45→17:35)
[2016-12-13] MEDS ORDERED: MetoCLOpramide 5 mg/mL 2 mL Inj IVPUSH PRN (12:45)
[2016-12-13] MEDS ORDERED: HYDROmorphone 1 mg/mL Inj IVPUSH PRN (12:45)
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
--- NOTE | 2016-12-13 13:32 | NUR ---
Off Unit Patient off unit to OR at 1300 consent in chart unsigned by patient. Last blood sugar 114, pain well controlled, NPO since midnight.
[2016-12-13] MEDS: CeFAZolin 2 Gm/50 mL D5W IV Premix IV SCH (13:35)
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
--- NOTE | 2016-12-13 16:30 | NUR ---
Social Work: Continued Discharge Planning/Multidisciplinary Rounds D: EMR reviewed. Pt is on day 10 of hospitalization. Pt discussed in multidisciplinary rounds. Pt to surgery today. PT will see pt after surgery. Pt is likely to need crutches and/or a walker at d/c. These can potentially be coordinated through [facility] but it is also possible that pt may have access to [facility] [employer] [facility] on [place], per Elizabeth Cordova at [facility]. T/C from antoine Vidal at [facility] who states that unfortunately pt's housing is likely not to be ready until December 28 due to the paperwork requirements and the coordination of the apartment. NINA has been given a different impression in the past, as the [facility] had communicated that pt would have housing upon d/c. T/C from SHELDON Ceron CM for pt, requesting update. Update provided. Colby is concerned that pt's inconsistency with self-care will impact his postop course and Colby is hopeful that pt will be able to go to SNF prior to returning to [place]. NINA explained that MD orders are required for this. In addition, pt has a difficult insurance for SNF placement and this may be a barrier to placement. Colby states understanding and will follow. T/C from Jazmin [phone] [facility] regarding pt's progress and d/c plan. Jazmin is coordinating pt's transportation home at d/c and reports that she will need advance notice regarding d/c plans and timeline so she can coordinate transportation from the hospital. The number listed above is the best number to contact her and she is following along. If pt is unable to acquire housing until December 28, pt will have no stable housing for postop course. HH will not be able to service pt without a location. If pt does not qualify for SNF then lack of housing until December 28 could be a significant barrier to a safe discharge. A: Pt who is independent at baseline - pt homeless but will hopefully have housing available at time of d/c P: Pt will likely need crutches or fww at d/c, SW to coordinate this either through [facility] or [facility] on [facility]. If pt has housing available at d/c (versus waiting until December 28), then pt may need HH. Pt's insurance could be a barrier to HH or SNF services. If pt is unable to acquire housing until December 28 but is medically ready for d/c sooner, pt will have no stable housing for postop course. HH will not be able to service pt without a stable location. If pt does not qualify for SNF then lack of housing until December 28 could be a significant barrier to a safe discharge. NINA will continue to follow. JENNIFER Loco Addendum: 12/13/16 at 1635 by MARYSOL CORADO SS Additional Information-- NINA received voicemail from pt's PCP Marianna Hopper [phone]. NINA placed return call, left message. Number also provided to pt's hospitalist. JENNIFER Loco
[2016-12-13] MEDS ORDERED: Bupivacaine-MPF 0.5% 30 mL Inj INFILTRATE ONE (17:22)
[2016-12-13] MEDS ORDERED: diphenhydrAMINE 25 mg Capsule PO PRN (17:35)
[2016-12-13] MEDS ORDERED: Magnesium Hydroxide 10 mL Oral Concentration PO PRN (17:35)
[2016-12-13] MEDS ORDERED: HYDROcodone-APAP 7.5-325 mg Tablet PO PRN (17:35)
[2016-12-13] MEDS ORDERED: Sodium Biphos-Phos 133 mL Enema RECTAL PRN (17:35)
[2016-12-13] MEDS ORDERED: Polyethylene Glycol (PEG) 17 Gm Powder PO PRN (17:35)
--- NOTE | 2016-12-13 18:53 | DRSVH ---
PROCEDURE: X-RAY LEFT KNEE, ONE OR TWO VIEWS ([id number]) INDICATIONS: postopERATIVE KNEE TECHNIQUE: 2 views of the knee were acquired. COMPARISON: None. FINDINGS: Bones: N normal alignment after transfer screw fixation, vertical K wire fixation, and cerclage wire fixation for the patellar fracture previously identified. Soft tissues: No joint effusion. No suspicious soft tissue calcifications. IMPRESSION: Normal postoperative alignment. Dictated by: Hal Jonas M.D. on 12/13/2016 at 18:51 Approved by: Hal Jonas M.D. on 12/13/2016 at 18:51
[2016-12-13] MEDS: HYDROmorphone 1 mg/mL Inj IVPUSH PRN (18:56)
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
--- NOTE | 2016-12-13 19:19 | NUR ---
ON UNIT Patient back to unit from OR on bed in room 1012 at 1835. Pain 10/10 given 0.5mg diluadid upon arrival. Denies nausea. Pedal pulses palpable, cap refill <3 sec. Knee immobilizer on left knee, OMKAR wrap, CDI. No drains.
[2016-12-13] MEDS: HYDROcodone-APAP 5-325 mg Tablet PO PRN (20:05)
[2016-12-13] MEDS: Senna-Docusate 8.6-50 mg Tablet PO SCH (20:30)
--- NOTE | 2016-12-13 23:28 | NUR ---
PAIN; slept for about 3hrs after norco given. Ice to knee. Brace intact. Dilaudid given at h.s. Pt states much worse pain after surgery. Repositioned and leg placed under pillow for comfort. Carl wrap loosened but not brace straps.
[2016-12-14] VITALS (7 sets, daily range): BP systolic 115–137; BP diastolic 63–80; PULSE 67–95; RESP 14–20; O2SAT 95–99
[2016-12-14] MEDS: Sodium Chloride LOK Flush 10 mL Syringe IV SCH ×3 (00:03→16:34)
--- NOTE | 2016-12-14 00:07 | NUR ---
PAIN; "my leg feels better". "The pain pills are working" pt states.
[2016-12-14] MEDS: Dextrose 5% 0.9% NaCl 1,000 ML IV SCH ×2 (00:22→05:39)
[2016-12-14] MEDS: HYDROmorphone 1 mg/mL Inj IVPUSH PRN ×2 (01:03→05:34)
[2016-12-14] MEDS: CeFAZolin Inj 2 GM in IV Premix 1 EACH IV SCH ×3 (02:44→17:56)
[2016-12-14] MEDS: HYDROcodone-APAP 5-325 mg Tablet PO PRN (02:48)
[2016-12-14 05:21] LABS: BASOPHILS % (AUTO) 0 % (0-3); EOSINOPHILS % (AUTO) 0 % (0-5); MONOCYTES % (AUTO) 6.5 % (4-12); Mean Corpuscular Hemoglobin 32.7 pg (27.0-35.0); Mean Corpuscular Volume 97.6 fL (81-100); NEUTROPHILS % (AUTO) 86.5 % (40-74); Platelet Count 223 bil/L (150-400)
--- NOTE | 2016-12-14 06:28 | NUR ---
Primo Rosario. here to see pt. Aware that pt would like his brace loosened if possible.
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
[2016-12-14] MEDS: hydrOXYzine Pamoate 25 mg Capsule PO PRN ×4 (07:25→21:32)
--- NOTE | 2016-12-14 07:49 | DRSVH ---
PROCEDURE: X-RAY SURGICAL FLUORO C-ARM >1 HR INDICATIONS: ORIF LEFT PATELLA COMPARISON: None. FINDINGS: IMPRESSION: 5 intraoperative images obtained with a mobile image intensifier demonstrating screw and cerclage wire fixation of a left patellar fracture. Dictated by: Pavan Roac M.D. on 12/14/2016 at 7:47 Approved by: Pavan Roca M.D. on 12/14/2016 at 7:48
[2016-12-14] MEDS: Senna-Docusate 8.6-50 mg Tablet PO SCH ×2 (08:13→21:35)
[2016-12-14] MEDS: Multivit-Miner-Folic Acid-Iron Tablet PO SCH (08:15)
--- NOTE | 2016-12-14 09:17 | NUR ---
USP TRANSFER : Gave access and faxed facesheet to Natalya Patel, patient is Medicaid and is only needing short term rehab. Housing is in place and available on the december. Updated DICTAPHONE TECHNICIAN
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
--- NOTE | 2016-12-14 15:28 | NUR ---
Activity Patient refusing to get out of bed with PT despite pain management states "knee needs to rest but should be good to attempt to get out of bed tomorrow". Patient educated on early mobility and better mcfp outcomes as well as DVT prevention. Patient also disagreeable to scheduled stool softeners because he didn't want to have to get out of bed to have a BM. Patient educated on use of opioid medications and constipation and the need for prophylactic stool softeners, patient understood and agreeable to stool softeners. Encouraged to independently change positions to prevent bed sores will continue to monitor.
--- NOTE | 2016-12-14 17:48 | NUR ---
Social Work: Continued Discharge Planning/Multidisciplinary Rounds D: EMR reviewed. Pt is on day 11 of hospitalization. Pt discussed in multidisciplinary rounds. Pt is POD1. PT to see pt again 12/15. Pt is likely to need crutches and/or a walker at d/c. These can potentially be coordinated through [facility] but it is also possible that pt may have access to loaner DME on [place], per Elizabeth Cordova at [facility]. T/C from Jazmin [phone] from [facility] regarding pt's progress and discharge plan. Jazmin stated that ppw has been cleared and pt will have housing as of 12/17. Jazmin stated that she is concerned about pt returning with HH because she fears pt will not follow-up with HH and end up being readmitted. T/C from Colby La () who stated his concerns about pt's return home. Colby and Jazmin both asked if SNF was a possibility until pt is more stable medically to return and follow-up with HH. SW confirmed that referral has been made to only accepting [facility] SNF in the area at this time ([facility]). SW will continue to call to determine if SNF is available for [facility] pt. NINA received orders from MD. If SNF placement is not an option, pt likely to discharge home now that housing is available as of 12/17 - NINA explained that pt's transport home will be covered by [facility] - Jazmin agreeable. SW will continue to follow. A: Pt who is independent at baseline - pt will have housing (new update) by 12/17 as per Jazmin from [facility]. P: Pt will likely need crutches or fww at d/c, SW to coordinate this either through [facility] or [employer] [facility]ME on [facility]. Pt will have housing 12/17 (new update as of 12/14) - [facility] referral sent for SNF bed at [facility]. SW will follow. If pt is medically stable for discharge on Saturday, pt will have housing and can go home with [facility]. Per Dr. Garcia, pt is not safe to discharge home with at this time and if SNF is not an option, NINA will work with to determine pt's need for hospital stay based on safe discharge plan. JENNIFER Hernandez
[2016-12-15] MEDS: hydrOXYzine Pamoate 25 mg Capsule PO PRN ×2 (02:43→06:46)
[2016-12-15] MEDS: Sodium Chloride LOK Flush 10 mL Syringe IV SCH ×4 (02:44→21:54)
[2016-12-15 04:45] VITALS: BP 111/66; PULSE 66; RESP 16; O2SAT 99
--- NOTE | 2016-12-15 07:36 | NUR ---
PAIN/CONSTIPATION: Pt. still having pain 7-9 out of 10, taking Roxicodone and Vistaril together. He is able to ambulate to the bathroom independently with FWW. States still unable to have a BM. Given stool softeners and prune juice. Encouraged water intake. A & O, vss. Gave report to DWAIN Carnes
[2016-12-15] MEDS: Multivit-Miner-Folic Acid-Iron Tablet PO SCH (08:42)
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
--- NOTE | 2016-12-15 10:05 | PCM.PNORTH ---
Subjective Date of Service: Dec 15, 2016 Visit Information: Reason for Visit Fractured Pattelar Surgery/Surgery Date Post-Op Day # 2 Date of Admission: Dec 03, 2016 at 23:49 Hospital Day # Subjective Patient states he is having no pain at rest but when he gets up to use the commode he has a lot of pain. He states he was up with PT yesterday but could bear no weight because of pain. Patient is very nervous about PT today but I assured him that each day he will be able to do a little more than the day before and his pain should be decreasing. He agreed to work with PT today. Postop General: No Shortness of Breath, No Chest Pain, Good Appetite Pain Management: PO, IV Push Objective Exam Objective Patient sitting up in bed reading a book. Hinged knee brace in place, locked in extension, all straps intact and fastened. Vital Signs and I/O Vital Sign - Last Date Time Temp Pulse Resp B/P Pulse Ox O2 Delivery O2 Flow Rate FiO2 12/15/16 04:45 36.7 66 16 111/66 99 Room Air 12/13/16 18:30 3 Intake and Output 12/14/16 12/14/16 12/15/16 Cumulative From/Thru 15:00 23:00 07:00 12/03/16 21:32 - 12/14/16 23:02 Intake Total 1344 ml 58659 ml Output Total 1725 ml 40408 ml Balance -381 ml 350 ml Intake Oral 992 ml 80853 ml IV Total 352 ml 65594 ml Packed Cells 300 ml Output Urine Total 1725 ml 00522 ml Estimated Blood Loss 50 ml # Voids 6 # Bowel Movements 0 3 Result Diagram: 12/14/16 0455 12/13/16 0515 General Appearance: Alert, Oriented X3, Cooperative, No Acute Distress Extremities: Distal Pulses Palpable, No Compartment Syndrom Noted, Thigh & Calf Soft/Nontender Postop Sensory Motor: Distal Motor Intact, Movement in Toes, Distal Sensation Intact, NVI Distally SURGICAL WOUND : Wound Location/Description Perioperative dressing c/d/i Incision General Appearance: No Direct Observation Activity: Activity per PT, Ambulate with PT (50% partial weightbearing on the left lower extremity using a front-wheeled walker) Catheters: None Assessment & Plan Impression Postop day #2 from left patella fracture ORIF performed on 12/13/[address] Luisito Garcia. Problems: Plan Partial weightbearing only had 50% body weight at the left lower extremity using front wheeled walker and rehabilitation knee orthosis locked in extension. Continue rehabilitation type knee brace at all times 6 weeks postop. Continue formal physical therapy for mobility, gait and safety. Continue pain medication as needed and move to by mouth pain medication as soon as possible. Continue Lovenox 40 mg subcutaneous daily while in house for DVT prophylaxis. Begin ASA 325 mg EC by mouth twice a day 3 weeks for DVT prophylaxis on discharge. Keep dressing clean dry and intact. Bandages should be changed by orthopedic mid level provider rounder prior to discharge. Patient's recovery will be a long and likely arduous process and should be monitored closely for the first 12 weeks and it will be easier for patient and provider if he is able to go to a SNF near out institution. He does have sponsored housing now but will need transportation costs to be covered for return visits for doctor's appointments. Follow-up in 2 weeks at [facility] orthopedic clinic with mid-low provider for wound check and suture trimming. Dr. Luisito Garcia who has requested the patient stay in house over the weekend to obtain some controlled formal physical therapy prior to discharge to ensure safe mobility and to monitor his complaint of paresthesia at the foot. In addition, he is not have a safe discharge due to lack of housing so he cannot have home health. Orthopedics thanks [facility] service for their help in the medical management of this patient. Anticipate discharge to halfway facility by hospitalist service when this can be arranged by professor of social work and when patient is determined by hospitalist service to be medically stable. Ideally this would be on Saturday, . VTE Prophylaxis: Sub-Q Enoxaparin (Lovenox 40 mg subcutaneous daily while in house.), SCDs, Other (ASA 325 mg EC by mouth twice a day 3 weeks to begin on discharge after Lovenox is discontinued.) Resuscitation Status: CPR: Attempt Resuscitation India Nickerson PA-C Dec 15, 2016 10:05
[2016-12-15] MEDS: Senna-Docusate 8.6-50 mg Tablet PO SCH ×2 (10:53→21:52)
--- NOTE | 2016-12-15 12:07 | NUR ---
RE-Evaluation completed. Please go to "Notes" then click on "Assessments and Notes" (bottom left corner of screen). Then select appropriate discipline tab on top of screen.
[2016-12-15 13:00] VITALS: BP 111/72; PULSE 94; RESP 18; O2SAT 98
--- NOTE | 2016-12-15 19:23 | NUR ---
Pain, Left Leg Sensation, Bowel Movement Patient continues to have some pain to the surgical site this shift, patient states that it is tolerable with ordered pain medications. Patient states that previous feeling of numbness has decreased, states he primary feels an itching sensation to the lower extremity. Patient has had two large bowel movements this shift. Care is ongoing.
[2016-12-15 19:38] VITALS: BP 121/69; PULSE 81; RESP 16; O2SAT 96
[2016-12-16 04:38] VITALS: BP 100/64; PULSE 65; RESP 16; O2SAT 97
--- NOTE | 2016-12-16 06:08 | NUR ---
incisional pain Rated 5-6 at rest but patient states he only needs 1 oxycodone. no c/o increased pain but appears anxious for PT due to pain with mobility. Instructed on being pre-medicated prior to activity, and patient hopeful this may help today.
[2016-12-16 08:56] VITALS: BP 152/85; PULSE 94; RESP 16; O2SAT 98
[2016-12-16] MEDS: hydrOXYzine Pamoate 25 mg Capsule PO PRN ×2 (09:13→23:08)
[2016-12-16] MEDS: Senna-Docusate 8.6-50 mg Tablet PO SCH ×2 (09:17→23:08)
[2016-12-16] MEDS: Multivit-Miner-Folic Acid-Iron Tablet PO SCH (09:19)
[2016-12-16] MEDS: Sodium Chloride LOK Flush 10 mL Syringe IV SCH ×2 (09:20→18:10)
--- NOTE | 2016-12-16 10:16 | PCM.PNORTH ---
Subjective Date of Service: Dec 16, 2016 Visit Information: Reason for Visit Fractured Pattelar Surgery/Surgery Date Post-Op Day # 3 Date of Admission: Dec 03, 2016 at 23:49 Hospital Day # Subjective Patient states he has a lot of pain when up with physical therapy and then it is hard to control afterwards. He expresses concerns about how he has "a long ways to go." Postop General: No Shortness of Breath, No Chest Pain, Good Appetite Pain Management: PO, IV Push Objective Exam Objective Patient is laying in bed Vital Signs and I/O Vital Sign - Last Date Time Temp Pulse Resp B/P Pulse Ox O2 Delivery O2 Flow Rate FiO2 12/16/16 08:56 37.3 94 16 152/85 98 Room Air 12/13/16 18:30 3 Intake and Output 12/15/16 12/15/16 12/16/16 Cumulative From/Thru 15:00 23:00 07:00 12/03/16 21:32 - 12/16/16 04:38 Intake Total 2311 ml 2120 ml 690 ml 97246 ml Output Total 1925 ml 1100 ml 1450 ml 01397 ml Balance 386 ml 1020 ml -760 ml 996 ml Intake Oral 2311 ml 2120 ml 690 ml 43926 ml IV Total 30840 ml Packed Cells 300 ml Output Urine Total 1925 ml 1100 ml 1450 ml 68129 ml Estimated Blood Loss 50 ml # Voids 9 15 # Bowel Movements 1 1 0 5 Result Diagram: 12/14/16 0455 12/13/16 0515 General Appearance: Alert, Oriented X3, Cooperative, No Acute Distress Extremities: Distal Pulses Palpable, No Compartment Syndrom Noted, Tenderness/ Swelling Noted Postop Sensory Motor: Distal Motor Intact, Movement in Toes, Distal Sensation Intact (Admits to numbness over lateral aspect of foot), NVI Distally SURGICAL WOUND : Wound Location/Description Claudine-operative dressings c/d/i Incision General Appearance: No Direct Observation Activity: Activity per PT, Ambulate with PT (50% partial weightbearing on the left lower extremity using a front-wheeled walker) Catheters: None Assessment & Plan Impression Postop day #3 from left patella fracture ORIF performed on 12/13/[address] Luisito Garcia. Problems: Plan Patient continues to complain of left foot numbness. He states it is mostly along the lateral aspect of his foot and distal anterior aspect of his vanessa. Partial weightbearing only had 50% body weight at the left lower extremity using front wheeled walker and rehabilitation knee orthosis locked in extension. If patient can safely use crutches and maintain weightbearing status , he may be trained to use crutches instead of walker. Continue rehabilitation type knee brace at all times 6 weeks postop. Continue formal physical therapy for mobility, gait and safety. Continue pain medication as needed and move to by mouth pain medication as soon as possible. Continue Lovenox 40 mg subcutaneous daily while in house for DVT prophylaxis. Begin ASA 325 mg EC by mouth twice a day 3 weeks for DVT prophylaxis on discharge. Keep dressing clean dry and intact. Bandages should be changed by orthopedic mid level provider rounder prior to discharge. Patient's recovery will be a long and likely arduous process and should be monitored closely for the first 12 weeks and it will be easier for patient and provider if he is able to go to a SNF near out institution. He does have sponsored housing now but will need transportation costs to be covered for return visits for doctor's appointments. Follow-up in 2 weeks at [facility]opedic clinic [facility] for wound check and suture trimming. Dr. Luisito Garcia who has requested the patient stay in house over the weekend to obtain some controlled formal physical therapy prior to discharge to ensure safe mobility and to monitor his complaint of paresthesia at the foot. In addition, he is not have a safe discharge due to lack of housing so he cannot have home health. [facility] in the medical management of this patient. Anticipate discharge to long-term facility by hospitalist service when this can be arranged by health care social worker and when patient is determined by hospitalist service to be medically stable. Ideally this would be on Saturday, . VTE Prophylaxis: Sub-Q Enoxaparin (Lovenox 40 mg subcutaneous daily while in house.), SCDs, Other (ASA 325 mg EC by mouth twice a day 3 weeks to begin on discharge after Lovenox is discontinued.) Resuscitation Status: CPR: Attempt Resuscitation India Nickerson PA-C Dec 16, 2016 10:16
[2016-12-16 12:54] VITALS: BP 127/75; PULSE 94; RESP 17; O2SAT 99
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
[2016-12-16 19:30] VITALS: BP 123/68; PULSE 95; RESP 18; O2SAT 96
--- NOTE | 2016-12-16 19:35 | NUR ---
Pain Pt c/o pain today in LL extremity; 1 PO Vistaryl given and pt able to rest comfortable. Pt requested pre-med today before working with PT; 10mg PO Roxicodone given, pt able to tolerate amb with FWW for PT stating "it hurt but feel better than previous time with PT. Still painful, but more bearable." Care ongoing.
--- NOTE | 2016-12-16 23:58 | NUR ---
Pain / Tingling Patient c/o pain and mild tingling in lower left extremity. Pain managed with current medications. Denies any CP, SOB, or abdominal discomfort at this time. Bed low and in locked position, call light within reach, intentional rounding for safety.
[2016-12-17] MEDS: Sodium Chloride LOK Flush 10 mL Syringe IV SCH ×3 (03:08→16:55)
[2016-12-17 05:15] VITALS: BP 111/73; PULSE 99; RESP 18; O2SAT 98
--- NOTE | 2016-12-17 07:04 | PCM.PNORTH ---
Subjective Date of Service: Dec 17, 2016 Visit Information: Reason for Visit Fractured Pattelar Surgery/Surgery Date Post-Op Day # Date of Admission: Dec 03, 2016 at 23:49 Hospital Day # Subjective Found patient awake and alert this morning and sitting up in bed reading. No complaints of pain. Discussed discharge plans this morning and patient is aware of social science professor is working on placement. Change dressing this morning and found 2.5 cm fracture blister at the proximal medial aspect of the incision. This is unroofed and Xeroform is placed over the incision and the fracture blister and knee is replenished. Found wound to be in good condition. Discussed with patient the idea of keeping his leg as straight as possible and continuing to participate with formal therapy. Patient indicates it hurts when he moves about and gets out of bed and I have assured him is his normal and although uncomfortable it is necessary for him to maintain his mobility. Postop General: No Complaints, No Shortness of Breath, No Chest Pain, Good Appetite Pain Management: PO Objective Exam Objective Alert and oriented 3 and prickly Postoperative dressing is changed this morning and wound is found to be in good condition. There is a 2.5 cm fracture blister at the box on medial aspect of the incision. This is unroofed and Xeroform is placed over the blister. Patient's knee is really bandaged with a canteen operator bandages including an ABG and a single Carl wrap and his knee orthosis is replaced. Calf and thigh are soft and nontender Toe wiggle and ankle dorsiflexion and plantarflexion is intact at left lower extremity. Sensation continues to be reduced at the foot and ankle area but patient indicates this morning this feels like it is gradually resolving. Gait 25-50 feet with physical therapy on 12/16/2016. Recommendation is for discharge to alf facility. Vital Signs and I/O Vital Sign - Last Date Time Temp Pulse Resp B/P Pulse Ox O2 Delivery O2 Flow Rate FiO2 12/17/16 05:15 37.0 99 18 111/73 98 Room Air 12/13/16 18:30 3 Intake and Output 12/16/16 12/16/16 12/17/16 Cumulative From/Thru 15:00 23:00 07:00 12/03/16 21:32 - 12/17/16 05:15 Intake Total 2000 ml 850 ml 83130 ml Output Total 2150 ml 1725 ml 32979 ml Balance -150 ml -875 ml -29 ml Intake Oral 2000 ml 850 ml 01476 ml IV Total 21634 ml Packed Cells 300 ml Output Urine Total 2150 ml 1725 ml 69688 ml Estimated Blood Loss 50 ml # Voids 15 # Bowel Movements 0 0 5 Result Diagram: 12/14/16 0455 12/13/16 0515 General Appearance: Alert, Oriented X3, Cooperative, No Acute Distress Extremities: No Compartment Syndrom Noted, Thigh & Calf Soft/Nontender Postop Sensory Motor: Distal Motor Intact, Movement in Toes, Distal Sensation Intact SURGICAL WOUND : Incision General Appearance: No Direct Observation Activity: Activity per PT, Ambulate with PT (50% partial weightbearing on the left lower extremity using a front-wheeled walker) Catheters: None Assessment & Plan Plan Postop day #4 and post admission day #13 from a left patella fracture with ORIF performed on 12/13/[address] Luisito Garcia. Partial weightbearing only at 50% body weight at the left lower extremity using front wheeled walker and rehabilitation knee orthosis locked in extension. Continue rehabilitation type knee brace 24 76 weeks postop. Continue formal physical therapy for mobility, gait and safety. Continue by mouth pain medication as needed. Continue Lovenox 40 mg subcutaneous daily while in house for DVT prophylaxis. Begin ASA 325 mg EC by mouth twice a day 3 weeks for DVT prophylaxis on discharge. Keep dressing clean dry and intact. Postoperative bandages changed this morning to a somewhat canteen operator bandage and wound is in good condition. Patient continues to have anesthesia about the foot and ankle area but indicates this morning that he believes this is gradually resolving. Patient's recovery will be a long and likely arduous process and should be monitored closely for the first 12 weeks. This will be easier for patient and provider if he is able to go to a SNF in this area. He does have sponsored housing now on [facility] and does have transportation cost coverage available per social science professor. senior professional services consultant is working on possible placement in this area with a medicaid bed in one of our local SNF's.. Safe discharge is a consideration in this case and discharging patient to an apartment on [facility] would not facilitate reasonable follow-up nor daily therapy condidering HH is unavailable for at least 2 weeks.. Follow-up in 2 weeks at [facility] orthopedic clinic with RAHEEL Jaffe for wound check and suture trimming. Orthopedics thanks hospital service for their help in the medical management of this patient. Anticipate discharge to alf facility or other by hospitalist service when this can be arranged by social science professor and when patient is determined by hospitalist service to be medically stable. Ideally this would be on 12/17/2016. VTE Prophylaxis: Sub-Q Enoxaparin (Lovenox 40 mg subcutaneous daily while in house.), SCDs, Other (ASA 325 mg EC by mouth twice a day 3 weeks to begin on discharge after Lovenox is discontinued.) Resuscitation Status: CPR: Attempt Resuscitation Landry Cramer PA-C Dec 17, 2016 07:04 house.), SCDs, Other (ASA 325 mg EC by mouth twice a day 3 weeks to begin on discharge after Lovenox is discontinued.) Resuscitation Status: CPR: Attempt Resuscitation Landry Cramer PA-C Dec 17, 2016 07:04
[2016-12-17] MEDS: Senna-Docusate 8.6-50 mg Tablet PO SCH ×2 (08:30→21:01)
--- NOTE | 2016-12-17 09:01 | NUR ---
FAXED FACESHEET AND GAVE ACCESS TO [facility], [facility], [facility], MARIA M ALLEN JOSPEHINE FAXED CLINICALS TO [facility]. SPOKE WITH FREDO AT [facility], SHE WILL REVIEW REFERRAL AND ADVISE. JENNIFER AWARE.
[2016-12-17 09:23] VITALS: BP 106/73; PULSE 95; RESP 18; O2SAT 97
[2016-12-17] MEDS: hydrOXYzine Pamoate 25 mg Capsule PO PRN ×2 (10:00→22:05)
[2016-12-17] MEDS: Multivit-Miner-Folic Acid-Iron Tablet PO SCH (12:00)
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
--- NOTE | 2016-12-17 12:40 | NUR ---
Social Work- Continued D/C Planning Data: EMR reviewed. Pt is on day 14 of hospitalization for fracture patella per H&P. Pt discussed in multidisciplinary rounds, Ortho and Hospitalist feel strongly that pt will require SNF placement after this admission. SW discussed that pt's insurance may be a barrier to SNF placement. All are aware. To facilitate acceptance at a facility, UR Specialist has made referrals to numerous SNF's in the [facility] area (see list in subsequent notes). [facility] is attempting one time contract. Chantale from [facility] would like to do a bedside assessment tomorrow prior to beginning contact with [employer]. If no facilities have accepted pt or received contract by tomorrow, [facility] will complete bedside assessment. SW spoke with pt at bedside regarding SNF search and d/c planning. Pt understands payor limitations and is agreeable to SNF regardless of geography. Pt prefers facilities in [facility] before [facility] or [place]. Pt is agreeable that he needs SNF level of care. T/C to [facility] regarding pt and updating [facility] of pt's d/c plan. Left message with update. NINA will continue to work on this with assistance of UR Specialist. SW will continue to follow. Assessment: Pt for whom SNF is medically necessary at d/c Plan: Referrals have been made to all SNF's in [facility]. Pt's payor could be barrier to SNF. Facility would have to attempt one time contract. Pt is aware of limitations, agreeable to placement where accepted. NINA will continue to work on this with assistance of UR Specialist. SW will continue to follow. JENNIFER Loco Addendum: 12/17/16 at 1257 by MARYSOL CORADO SEAMLESS TUBE DRAWER participating in dual d/c planning at this time. Backup plan involves d/c home with [facility] services. Pt's housing is available as of 12/17. T/C to Jagruti at [facility] regarding waitlist. Jagruti stated that [facility] is not servicing [facility] for at least two weeks due to provider shortage. Ortho and Hospitalist notified, agree that two weeks is too long. SW placed call and left voicemail requesting waitlist if possible as a back up plan. No return call as of this note. Arminda Corado, SEAMLESS TUBE DRAWER
[2016-12-17 12:45] VITALS: BP 114/73; PULSE 96; RESP 18; O2SAT 96
--- NOTE | 2016-12-17 13:31 | NUR ---
GROUP HOME TRANSFER : Called and spoke with Chantale davenport at [facility] and her database administrator will need to come in tomorrow morning and do a bedside assessment. Called and left [facility] and asked about follow up on the referral sent this morning. Updated MANAGER ICU Addendum: 12/17/16 at 1340 by ZULEYMA VALENCIA CM Uma from [facility] can not accept patient at this time. Updated MANAGER ICU
[2016-12-17 15:42] VITALS: BP 112/73; PULSE 97; RESP 16; O2SAT 97
[2016-12-17 19:45] VITALS: BP 116/73; PULSE 81; RESP 17; O2SAT 97
[2016-12-18] MEDS: Sodium Chloride LOK Flush 10 mL Syringe IV SCH ×3 (00:31→16:24)
--- NOTE | 2016-12-18 04:03 | NUR ---
Activity/Pain Pt able to use FWW to get of bed for toileting to BSC with no safety issue or concerns. Medicated for left knee pain with oxycodone with good relief reported. Immobilizer brace on left knee in place with no concerns. Will continue to monitor.
[2016-12-18 04:47] VITALS: BP 124/76; PULSE 79; RESP 17; O2SAT 98
--- NOTE | 2016-12-18 06:29 | PCM.PNORTH ---
Subjective Date of Service: Dec 18, 2016 Visit Information: Reason for Visit Fractured Pattelar Surgery/Surgery Date Post-Op Day # Date of Admission: Dec 03, 2016 at 23:49 Hospital Day # Subjective Found patient awake and alert sitting up in bed watching television and reading. Complaints of pain at this time. Discussed participation with formal physical therapy and encouraged patient to take advantage of this opportunity for mobility so that he will have improved mobility has time passes. I have advised patient that if he does not work diligently on his mobility his leg may well be very stiff. Postop General: No Complaints, No Shortness of Breath, No Chest Pain, Good Appetite Pain Management: PO Objective Exam Objective Alert and oriented 3 and pleasant. Postoperative dressing clean dry and intact. Toe wiggle intact at left lower extremity distally Sensation decreased at 4 and a ankle area. Patient indicates this is gradually improving. Rehabilitation knee arthrosis in place and working. Refuse participation with physical therapy yesterday on 12/17/2016 Vital Signs and I/O Vital Sign - Last Date Time Temp Pulse Resp B/P Pulse Ox O2 Delivery O2 Flow Rate FiO2 12/18/16 04:47 36.7 79 17 124/76 98 Room Air 12/13/16 18:30 3 Intake and Output 12/17/16 12/17/16 12/18/16 Cumulative From/Thru 15:00 23:00 07:00 12/03/16 21:32 - 12/18/16 00:30 Intake Total 1800 ml 33281 ml Output Total 2400 ml 09219 ml Balance -600 ml -629 ml Intake Oral 1800 ml 17234 ml IV Total 84161 ml Packed Cells 300 ml Output Urine Total 2400 ml 87502 ml Estimated Blood Loss 50 ml # Voids 15 # Bowel Movements 5 Result Diagram: 12/14/16 0455 12/13/16 0515 General Appearance: Alert, Oriented X3, Cooperative, No Acute Distress Extremities: No Compartment Syndrom Noted, Thigh & Calf Soft/Nontender Postop Sensory Motor: Distal Motor Intact, Movement in Toes, Decreased Sensation SURGICAL WOUND : Incision General Appearance: No Direct Observation Activity: Activity per PT, Ambulate with PT (50% partial weightbearing on the left lower extremity using a front-wheeled walker) Catheters: None Assessment & Plan Plan Postop day #5 and post admission day #13 from a left patella fracture with ORIF performed on 12/13/[address] Luisito Garcia. Partial weightbearing only at 50% body weight at the left lower extremity using front wheeled walker and rehabilitation knee orthosis locked in extension. Continue rehabilitation type knee brace 24 76 weeks postop. Continue formal physical therapy for mobility, gait and safety. Patient is refusing formal physical therapy and has been counseled regarding this and the effects of lack of mobility. Continue by mouth pain medication as needed. Continue Lovenox 40 mg subcutaneous daily while in house for DVT prophylaxis. Begin ASA 325 mg EC by mouth twice a day 3 weeks for DVT prophylaxis on discharge. Keep dressing clean dry and intact. Patient continues to have anesthesia about the foot and ankle area but indicates this morning that he believes this is gradually resolving. Patient's recovery will be a long and likely arduous process and should be monitored closely for the first 12 weeks. This will be easier for patient and provider if he is able to go to a SNF in this area. He does have sponsored housing now on [facility] and does have transportation cost coverage available per social welfare clerk. services advisor is working on possible placement in this area with a medicaid bed in one of our local SNF's.. Safe discharge is a consideration in this case and discharging patient to an apartment on [facility] would not facilitate reasonable follow-up nor daily therapy condidering HH is unavailable for at least 2 weeks.. Follow-up in 2 weeks at [facility] orthopedic clinic with RAHEEL Jaffe for wound check and suture trimming. Orthopedics thanks [facility] service for their help in the medical management of this patient. Anticipate discharge to shelter facility or other by hospitalist service when this can be arranged by social welfare clerk and when patient is determined by hospitalist service to be medically stable. Ideally this will be today on 12/18/2016 or as soon as appropriate discharge venue is secured. VTE Prophylaxis: Sub-Q Enoxaparin (Lovenox 40 mg subcutaneous daily while in house.), SCDs, Other (ASA 325 mg EC by mouth twice a day 3 weeks to begin on discharge after Lovenox is discontinued.) Resuscitation Status: CPR: Attempt Resuscitation Landry Cramer PA-C Dec 18, 2016 06:29
--- NOTE | 2016-12-18 08:48 | NUR ---
PRISON TRANSFER : [facility] is unable to accept patient as they are do not carry a contract with patient's insurance Spoke with Jaiden at [facility] and they can not meet patient's needs due to funding and amount of care and rehab needed. Left message for Alexander at [facility] and asked about referral and asked for call back as soon as possible. Updated DISPUTE SPECIALIST
[2016-12-18] MEDS: Senna-Docusate 8.6-50 mg Tablet PO SCH ×2 (09:36→21:01)
[2016-12-18] MEDS: Multivit-Miner-Folic Acid-Iron Tablet PO SCH (09:36)
--- NOTE | 2016-12-18 12:04 | NUR ---
Social Work- Readiness for Discharge/Multidisciplinary Rounds Data: EMR reviewed. Pt is on day 15 of hospitalization for fracture patella per H&P. Pt discussed in multidisciplinary rounds, Ortho and Hospitalist continue to feel strongly that pt will require SNF placement after this admission. Pt has received multiple denials from SNF due to payor and contract limitations. Rupert, inventory administrator at [facility], met with pt at bedside and is agreeable to accepting pt pending insurance. T/C to Chantale, admissions at [facility], who is working on insurance authorization through [employer]. Chantale to update ALL AROUND PATTERNMAKER when information is known. Pt updated and agreeable to plan. SW continues to follow. Assessment: Pt for whom SNF is medically necessary at d/c Plan: [facility] has accepted pt pending insurance. Admissions at [facility] is contacting [employer] today. Pt updated and agreeable to plan. SW continues to follow. JENNIFER Loco Addendum: 12/18/16 at 1352 by MARYSOL CORADO T/T Chantale at [facility]. [employer] is reviewing pt. No authorization as of this note. JENNIFER Loco Addendum: 12/18/16 at 1741 by MARYSOL CORADO SS [facility]. No authorization as of this note. MD team notified. SW continues to follow. Arminda Corado, ALL AROUND PATTERNMAKER
[2016-12-18 13:21] VITALS: BP 113/71; PULSE 93; RESP 18; O2SAT 98
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
[2016-12-18 19:30] VITALS: BP 106/73; PULSE 78; RESP 17; O2SAT 98
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
[2016-12-18] MEDS: hydrOXYzine Pamoate 25 mg Capsule PO PRN (20:50)
[2016-12-19] MEDS: Sodium Chloride LOK Flush 10 mL Syringe IV SCH ×2 (00:19→08:57)
--- NOTE | 2016-12-19 00:46 | NUR ---
Pain On initial assessment, patient complained of pain 7/10 on pain scale. Pain medication administered along with Vistaril. Patient cooperative with assessment questions. VSS. Call light within reach. Care continues.
[2016-12-19 05:24] VITALS: BP 124/75; PULSE 81; RESP 17; O2SAT 98
[2016-12-19] MEDS ORDERED: Magnesium Hydroxide 10 mL Oral Concentration PO PRN (07:24)
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
[2016-12-19 08:12] VITALS: BP 117/70; PULSE 97; RESP 20; O2SAT 98
[2016-12-19] MEDS: Multivit-Miner-Folic Acid-Iron Tablet PO SCH (08:56)
[2016-12-19] MEDS: Senna-Docusate 8.6-50 mg Tablet PO SCH (09:01)
--- NOTE | 2016-12-19 09:27 | PCM.PNORTH ---
Subjective Date of Service: Dec 19, 2016 Visit Information: Reason for Visit Fractured Pattelar Surgery/Surgery Date Post-Op Day # 6 Date of Admission: Dec 03, 2016 at 23:49 Hospital Day # Subjective Patient states his pain is better today. He states physical therapy has been getting easier for him and he is hoping he can graduate to crutches soon as the walker is cumbersome. He states his foot numbness is "better" and his foot is "more ticklish" today. Postop General: No Complaints, No Shortness of Breath, No Chest Pain, Good Appetite Pain Management: PO Objective Exam Objective Patient laying in bed, brace in place Vital Signs and I/O Vital Sign - Last Date Time Temp Pulse Resp B/P Pulse Ox O2 Delivery O2 Flow Rate FiO2 12/19/16 08:12 36.5 97 20 117/70 98 Room Air 12/13/16 18:30 3 Intake and Output 12/18/16 12/18/16 12/19/16 Cumulative From/Thru 15:00 23:00 07:00 12/03/16 21:32 - 12/19/16 05:24 Intake Total 1836 ml 1836 ml 78432 ml Output Total 925 ml 1075 ml 43458 ml Balance 911 ml 761 ml 1043 ml Intake Oral 1836 ml 1836 ml 77392 ml IV Total 11072 ml Packed Cells 300 ml Output Urine Total 925 ml 1075 ml 07219 ml Estimated Blood Loss 50 ml # Voids 15 # Bowel Movements 0 0 5 Result Diagram: 12/14/16 0455 12/13/16 0515 General Appearance: Alert, Oriented X3, Cooperative, No Acute Distress Extremities: Distal Pulses Palpable, No Compartment Syndrom Noted Postop Sensory Motor: Distal Motor Intact, Movement in Toes, Distal Sensation Intact, NVI Distally SURGICAL WOUND : Wound Location/Description Dressings removed and new xeroform, gauze and ABD pad placed and rewrapped with a new helena bandage. Patient was then placed back into brace. Incision appears to be healing well. Steri strips in place. Three fracture blisters appreciated ranging from 3mm to 8mm in diameter. No drainage or erythema. Swelling appears to be reduced from last exam with only a mild effusion at this time and mild swelling around incision. Incision General Appearance: No Direct Observation Activity: Activity per PT, Ambulate with PT (50% partial weightbearing on the left lower extremity using a front-wheeled walker) Catheters: None Assessment & Plan Impression Postop day #6 and post admission day #14 from a left patella fracture with ORIF performed on 12/13/[address] Luisito Garcia. Problems: Plan Partial weightbearing only at 50% body weight at the left lower extremity using front wheeled walker and rehabilitation knee orthosis locked in extension. Continue rehabilitation type knee brace 24 76 weeks postop. Continue formal physical therapy for mobility, gait and safety. Patient is refusing formal physical therapy and has been counseled regarding this and the effects of lack of mobility. Continue by mouth pain medication as needed. Continue Lovenox 40 mg subcutaneous daily while in house for DVT prophylaxis. Begin ASA 325 mg EC by mouth twice a day 3 weeks for DVT prophylaxis on discharge. Keep dressing clean dry and intact. Patient continues to have anesthesia about the foot and ankle area but indicates this morning that he believes this is gradually resolving. Patient's recovery will be a long and likely arduous process and should be monitored closely for the first 12 weeks. This will be easier for patient and provider if he is able to go to a SNF in this area. He does have sponsored housing now on [facility] and does have transportation cost coverage available per health care social worker. director of maternity services is working on possible placement in this area with a medicaid bed in one of our local SNF's.. Safe discharge is a consideration in this case and discharging patient to an apartment on [facility] would not facilitate reasonable follow-up nor daily therapy considering HH is unavailable for at least 2 weeks.. Follow-up in 2 weeks at [facility] [place] [facility] with RAHEEL Jaffe for wound check and suture trimming. Orthopedics thanks hospital service for their help in the medical management of this patient. Anticipate discharge to detention facility or other by hospitalist service when this can be arranged by health care social worker and when patient is determined by hospitalist service to be medically stable. Ideally this will be today on 12/19/2016 or as soon as appropriate discharge venue is secured. VTE Prophylaxis: Sub-Q Enoxaparin (Lovenox 40 mg subcutaneous daily while in house.), SCDs, Other (ASA 325 mg EC by mouth twice a day 3 weeks to begin on discharge after Lovenox is discontinued.) Resuscitation Status: CPR: Attempt Resuscitation India Nickerson PA-C Dec 19, 2016 09:27
[2016-12-19] MEDS: hydrOXYzine Pamoate 25 mg Capsule PO PRN (11:07)
--- NOTE | 2016-12-19 11:36 | PCM.DIMED ---
Discharge Instructions Date of Service Dec 19, 2016 Dates of Hospitalization Dec 03, 2016 at 23:49 Discharge Diagnosis Discharge Diagnosis Patellar fracture Diet Discharge Diet: Heart Healthy Call your provider Call your provider for: Shortness of breath, Bleeding, Excessive diarrhea Patient Instructions Patient Instructions Partial weightbearing only at 50% body weight at the left lower extremity using front wheeled walker and rehabilitation knee orthosis locked in extension. Continue rehabilitation type knee brace 24 76 weeks postop. Continue formal physical therapy for mobility, gait and safety. Continue by mouth pain medication as needed. Begin ASA 325 mg EC by mouth twice a day 3 weeks for DVT prophylaxis Keep dressing clean dry and intact. Follow-up with PCP in: 1 week Provider: Landry Cramer PA-C Follow-up in: 2 weeks Al Moyer MD Dec 19, 2016 11:36
[2016-12-19] MEDS ORDERED: OXYC5TAB72 PO (11:38)
[2016-12-19] MEDS ORDERED: ASPI325T32 PO (11:40)
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
--- NOTE | 2016-12-19 12:34 | NUR ---
Social Work- Discharge Data: EMR reviewed. Pt is on day 16 of hospitalization for fractured patellar per H&P. Pt discussed in multidisciplinary rounds. Pt is medically stable for d/c. [facility] received call that [facility] has authorized pt's stay, [facility] is agreeable to pt's arrival today. PULMONARY NURSE PRACTITIONER created packet, SW faxed orders. Facility arranged tentative transport for 1430, awaiting confirmation. Pt updated and agreeable to plan. Team at [facility] updated and agreeable to plan. RN, UC, pt/family, and [facility] all updated and agreeable to plan. Assessment: Pt for whom SNF is medically required. Plan:Pt to d/c to [facility] today at 1430 via wheelchair van. Pt, [facility], RN, UC, [facility] all updated and agreeable to plan. Arminda Resendiz MSW
[2016-12-19 13:53] VITALS: BP 123/80; PULSE 80; RESP 22; O2SAT 98
--- NOTE | 2016-12-19 14:45 | NUR ---
Discharge Pt to discharge to [facility]; A&Ox3, 1 IV access discontinued, 10mg PO Roxicodone given for pain as requested. L leg in immobilizer, 50% wt bearing, able to move all other extremities, pt amb with FWW and SBA for safety, belongings from safe with pt at time of discharge, care packet with pt and transporter at time of discharge. Report called to [facility].
== END 2016-12-19 14:40 | DRG 516 ==
LOC: EDBD 21:20 → EDUNIT# 21:20 → SED 21:20 → MPC 23:49 → OSC 12-06 20:18
PROVIDERS: ADMIT Internal Medicine; ATTEND Internal Medicine
PROC: 30233N1 Transfusion of Nonautologous Red Blood Cells into Peripheral Vein, Percutaneous Approach (ICD-10-PCS; 2016-12-11)
PROC: 0QSF04Z Reposition Left Patella with Internal Fixation Device, Open Approach (ICD-10-PCS; principal; 2016-12-13 13:00)
DX: S82.042A Displaced comminuted fracture of left patella, initial encounter for closed fracture (principal); D61.818 Other pancytopenia; L03.116 Cellulitis of left lower limb; E87.1 Hypo-osmolality and hyponatremia; F10.239 Alcohol dependence with withdrawal, unspecified; F10.229 Alcohol dependence with intoxication, unspecified; Y90.7 Blood alcohol level of 200-239 mg/100 ml; F17.210 Nicotine dependence, cigarettes, uncomplicated; Z59.0 Homelessness; V09.9XXA Pedestrian injured in unspecified transport accident, initial encounter; Y93.9 Activity, unspecified; Y92.9 Unspecified place or not applicable